=== PATIENT | female | born 1935 | race Caucasian/White ===

== ENCOUNTER → 2017-03-18 | Outpatient (CLI) | payer BC | LOC: FIMAGING 10:33 | PROVIDERS: ATTEND Family Medicine | DX: Z12.31 Encounter for screening mammogram for malignant neoplasm of breast (principal) | CPT/HCPCS: G0202 ==

== ENCOUNTER → 2017-07-09 | Outpatient (CLI) | payer BC | LOC: FIMAGING 15:45 | DX: R41.3 Other amnesia (principal) ==

== ENCOUNTER 2018-02-22 22:36 | Emergency (ER) | payer BC ==
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
--- NOTE | 2018-02-22 23:58 | CPEKG ---
Heart Rate: 70 RR Interval: 857 P-R Interval: 164 QRSD Interval: 90 QT Interval: 436 QTC Interval: 471 P [place]: 50 QRS [place]: -28 T Wave [place]: 19 EKG Severity - OTHERWISE NORMAL ECG - EKG Impression: SINUS RHYTHM EKG Impression: BORDERLINE LEFT AXIS DEVIATION Electronically Signed By: Ana Rizzo 24-Feb-2018 06:58:48
[2018-02-23 00:22] LABS: PLATELET COUNT 161 10^3/uL (150-400)
[2018-02-23] MEDS ORDERED: OLANZapine DISINTEGR 10 MG TAB ONE (00:44)
[2018-02-23] MEDS ORDERED: OLANZapine DISINTEGR 10 MG TAB PO ONE (00:48)
[2018-02-23] MEDS ORDERED: LORazepam 1 MG TAB PO ONE (03:42)
[2018-02-23 11:19] VITALS: BP 131/75
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
== END 2018-02-23 11:18 | disposition still patient (30) ==
LOC: EDUNIT#
DX: G30.9 Alzheimer's disease, unspecified (principal)
CPT/HCPCS: 80305; G0480

== ENCOUNTER → 2018-05-06 | Outpatient (CLI) | payer OTHER | LOC: FIMAGING 10:37 | PROVIDERS: ATTEND Family Medicine | DX: Z12.31 Encounter for screening mammogram for malignant neoplasm of breast (principal) ==

== ENCOUNTER → 2019-02-23 | Outpatient (CLI) | payer OTHER | LOC: FIMAGING 12:32 | DX: N13.2 Hydronephrosis with renal and ureteral calculous obstruction (principal); K59.00 Constipation, unspecified ==

== ENCOUNTER → 2019-04-01 | Outpatient (CLI) | payer OTHER | LOC: FIMAGING 07:31 ==